=== PATIENT | female | born 2000 | race Caucasian/White ===

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

== ENCOUNTER → 2023-04-17 | Outpatient (REF) | payer OTHER ==
[2023-04-17 15:12] LABS: BASO % 0.5 % (0.0-1.0); EOS # 0.1 10^3/uL (0.0-0.5); EOS % 2.4 % (0.0-3.0); HEMATOCRIT 40.5 % (36.0-47.0); HEMOGLOBIN 13.5 g/dl (12.0-15.5); LYMPH # 1.5 10^3/uL (1.5-5.0); LYMPH % 39.3 % (24.0-44.0); MEAN CORPUSCULAR HGB CONC 33.3 g/dl (32.0-36.5); MEAN CORPUSCULAR VOLUME 87.1 fl (80.0-96.0); MONO # 0.3 10^3/uL (0.0-0.8); MONO % 8.3 % (2.0-8.0); NEUTROPHILS # 1.8 10^3/uL (1.5-8.5); NEUTROPHILS % 49.2 % (36.0-66.0); PLATELET COUNT, AUTOMATED 277 10^3/uL (150-450); RED BLOOD COUNT 4.65 10^6/uL (4.00-5.40); WHITE BLOOD COUNT 3.7 10^3/uL (4.0-10.0)
[2023-04-17 15:33] LABS: IRON (FE) 78 UG/DL (50-170); PERCENT SATURATION 21.4 % (13.2-45.0); TOTAL IRON BINDING CAPACITY 365 UG/DL (250-425)
[2023-04-17 15:34] LABS: ALBUMIN 4.6 G/DL (3.2-5.2); ALKALINE PHOSPHATASE 39 U/L (46-116); ALT/SGPT 16 U/L (7.0-40); AST/SGOT 17 U/L (<34); BILIRUBIN,TOTAL 0.6 MG/DL (0.3-1.2); BLOOD UREA NITROGEN 11 MG/DL (9-23); CALCIUM LEVEL 9.6 MG/DL (8.5-10.1); CARBON DIOXIDE LEVEL 24 MMOL/L (20-31); CHLORIDE LEVEL 109 MMOL/L (98-107); CREATININE FOR GFR 0.56 MG/DL (0.55-1.30); GLUCOSE, FASTING 102 MG/DL (60-100); POTASSIUM SERUM 3.9 MMOL/L (3.5-5.1); SODIUM LEVEL 140 MMOL/L (136-145); TOTAL PROTEIN 7.5 G/DL (5.7-8.2)
[2023-04-17 15:38] LABS: FERRITIN 5.8 NG/ML (7.3-270.7); THYROID STIMULATING HORMONE 1.991 uIU/ML (0.48-4.17)
[2023-04-17 15:39] LABS: FOLATE > 24.0 NG/ML (>5.4)
[2023-04-17 15:40] LABS: VITAMIN B12 LEVEL 689 PG/ML (211-911)
== END ==
LOC: M SFHCADAM 13:43
PROVIDERS: ATTEND Physician Assistant
DX: R53.82 Chronic fatigue, unspecified (principal); M54.50 Low back pain, unspecified

== ENCOUNTER → 2023-05-09 | Outpatient (CLI) | payer OTHER | LOC: M CARPUL 14:07 | PROVIDERS: ATTEND Physician Assistant | DX: R01.1 Cardiac murmur, unspecified (principal) ==

== ENCOUNTER → 2023-05-15 | Outpatient (CLI) | payer OTHER | LOC: M RAD 06:54 | PROVIDERS: ATTEND Physician Assistant | DX: M51.26 Other intervertebral disc displacement, lumbar region (principal) ==

== ENCOUNTER → 2023-10-02 | Outpatient (REF) | payer OTHER | LOC: M SFHCADAM 11:44 | PROVIDERS: ATTEND Physician Assistant | DX: Z23 Encounter for immunization (principal); D72.819 Decreased white blood cell count, unspecified; R79.0 Abnormal level of blood mineral; J45.30 Mild persistent asthma, uncomplicated ==